=== PATIENT | female | born 1995 | race Caucasian/White ===

== ENCOUNTER 2017-07-01 14:47 | Emergency (ER) | payer SELFPAY ==
[~2017-07-01] VITALS: Ht 157.5 cm; Wt 93.0 kg
[2017-07-01 17:00] VITALS: BP 122/77
== END 2017-07-01 19:09 | disposition left against medical advice (07) ==
LOC: ER 15:30
DX: N94.89 Other specified conditions associated with female genital organs and menstrual cycle (principal); Z53.21 Procedure and treatment not carried out due to patient leaving prior to being seen by health care provider